=== PATIENT | male | born 1980 | race Caucasian/White ===

== ENCOUNTER 2025-02-03 09:18 | Emergency (ER) | payer BC, SELFPAY ==
[2025-02-03 09:19] VITALS: BP 170/93; PULSE 60; RESP 18; TEMP 36.7; O2SAT 98; BMI 36.8
--- NOTE | 2025-02-03 09:35 | VDLE_ITS ---
Reason For Study Reason For Study: SWELLING RIGHT LEFT GSV is normal. CFV is compressible, spontaneous, phasic, competent, CFV is compressible, spontaneous, phasic, competent and demonstrates normal augmentation. and demonstrates normal augmentation. FV is compressible, spontaneous, phasic, competent and demonstrates normal augmentation. POP V is compressible, spontaneous, phasic, competent and demonstrates normal augmentation. T/P Trunk is compressible. PTV is compressible. RT PerV is compressible. Procedure This is a venous duplex using B-mode, color flow and spectral Doppler. Exam performed portable in ED. A preliminary report was called and/or faxed to ED. VL/Venous Duplex US, Unilateral Interpretation Summary Deep veins of the right lower extremity are patent and compressible segmentally . There is no evidence of right lower extremity deep vein thrombosis. Valvular competence appears intact within the p roximal deep venous system on the right . The right great saphenous vein appears patent and compressible segmentally. The left common femoral vein is patent and compressible . Ordering Physician: Sammy Hickman Referring Physician: FRANKY PCP Performed By: Ravi Moreland RVT
--- NOTE | 2025-02-03 09:44 | EX.ED.DYSGE1 ---
HPI History of Present Illness Chief Complaint: Lower Extremity Injury Narrative Narrative: Chief complaint and HPI: Right knee injury/swelling. 44-year-old male with no significant past medical history who presents for evaluation of right knee injury/swelling. Patient states over the weekend he was working on a car in which the car slightly rolled and applied pressure to his right knee. He states it did not crush his knee. He states that he was able to twist his knee and remove it from underneath. Patient states he originally had mild pain in the knee however this resolved and currently denies pain in the right lower extremity. He states since the incident however he has developed swelling in the knee with mild ecchymosis in the distal thigh and calf which is why presents. He denies any numbness/tingling, weakness, or instability of the knee or right lower extremity. Review of systems: See HPI Medications: As listed on the chart Allergies: As listed on the chart PFSH: Per chart Vital signs: As listed on the chart. Reviewed. Physical exam: Gen: A&O x3, NAD Head: Normocephalic, atraumatic Eyes: No sclera icterus, conjunctiva clear ENT: Moist mucous membranes CV: Regular rate Resp: Nonlabored respiration Musc: Full ROM of the right lower extremity, no deformity, no knee instability, full extension and flexion, no tenderness to palpation of the right lower extremity or with movement, compartments soft, swelling of the right knee which travels into the distal thigh and proximal calf-mild ecchymosis in this area, compartments soft, DP/PT pulses +2 bilaterally, good capillary refill sensation intact, Skin: Warm, dry Neuro: Alert, oriented, grossly intact Psych: Cooperative, appropriate mood and affect PFSH PFSH Home Medications ?Medication ?Instructions ?Recorded ?Last Taken ?Type No Known/Unobtainable [No Known 05/15/16 Unknown History Home Medications] Allergy/AdvReac Type Severity Reaction Status Date / Time No Known Allergies Allergy Verified 02/03/25 09:19 Social History Smoking Status: Never smoker EXAM Physical Exam Const Vital Signs: 02/03/25 09:19 Temperature 98.1 F Temperature Source Oral Pulse Rate 60 Respiratory Rate 18 Blood Pressure 170/93 H Blood Pressure Mean 118 Pulse Ox 98 Oxygen Delivery Method Room Air MDM MDM MDM Narrative Medical decision making narrative: 44-year-old male with no significant past medical history who presents for evaluation of right knee injury/swelling. Endorses a compression injury but not crush. See physical exam findings. Patient currently denying any pain in the lower extremity just endorsing the swelling and ecchymosis that is visualized on exam. Differential diagnosis includes but is not limited to contusion, knee effusion, hematoma, DVT. Suspect less likely fracture given patient denies any pain however with the injury there could be an occult fracture. X-ray of the knee obtained with venous duplex ultrasound to assess for DVT. Exam is not consistent with compartment syndrome. Venous duplex ultrasound negative for DVT. X-ray of the knee was personally reviewed interpreted by me, ED physician. No fracture or dislocation. Radiology in agreement. At this point in time, no clear etiology for patient's symptoms however suspect that it is secondary to contusion. Follow-up with primary care physician and orthopedic surgeon. RICE education given. Patient stable to discharge home. Impression: 1. Right knee contusion 2. Right knee swelling Radiography Diagnostic Testing: Clinical Impression(s) from Imaging Studies Knee X-Ray 02/03/25 10:10 IMPRESSION: NO EFFUSION ACUTE FRACTURE OR DISLOCATION. Reading Location: [facility]- Discharge Plan Triage Chief Complaint: Lower Extremity Injury ED Provider: Sammy Hickman Dx/Rx/DC Orders Prescriptions: No Action No Known Home Medications Primary Care Provider: Care Physician,No Primary Referrals: Care Physician,No Primary [Primary Care Provider] - Print Language: [place]
--- NOTE | 2025-02-03 10:10 | RAD_ITS ---
PROCEDURE: KNEE 4 OR MORE VIEWS 02/03/2025 REASON FOR EXAM: INJURY TECHNIQUE: 4 view(s) of the right knee COMPARISON: None FINDINGS: Bones: No fracture. No suspicious bone lesion. Joints: Normal alignment. Mild degenerative changes. Effusion: No effusion. Soft tissues: Soft tissues are unremarkable. Other: RAD/Knee 4 or More Views IMPRESSION: NO EFFUSION ACUTE FRACTURE OR DISLOCATION. [facility]
[2025-02-03 11:09] VITALS: BP 158/78; PULSE 60; RESP 18; TEMP 36.7; O2SAT 98
== END 2025-02-03 11:22 | disposition home or self-care (01) ==
PROVIDERS: Emergency Provider Surgery; Visit Provider Surgery
DX: S80.01XA Contusion of right knee, initial encounter (principal); X58.XXXA Exposure to other specified factors, initial encounter
CPT/HCPCS: 73564; 93971; 99282